=== PATIENT | female | born 1950 | race Caucasian/White ===

== ENCOUNTER 2017-02-07 09:02 | Outpatient (CLI) | payer MEDICARE ==
[2015-06-18 07:18] VITALS: BMI 39.5
[~2017-02-07 09:02] MED LIST: ASPIRIN EC81 MG PO; LEXAPRO20 MG PO; LISINOPRIL-HCTZ1 T13 PO; SYNTHROID150 MCG PO
== END 2017-02-07 11:20 ==
LOC: D.MAMMO 09:02
DX: Z85.3 Personal history of malignant neoplasm of breast (principal)

== ENCOUNTER → 2018-02-12 23:58 | Outpatient (CLI) | payer MEDICARE ==
[2015-06-18 07:18] VITALS: BMI 39.5
[~2018-02-12 23:58] MED LIST changes: +CYCLOBENZAPRINE10 MG PO; +HYDROCODONE-APA1 TAB PO; +PERCOCET 10/3251 TA1 PO; +PHENERGAN25 M1 PO
== END | disposition home or self-care (01) ==
LOC: D.MAMMO 13:30
DX: Z12.31 Encounter for screening mammogram for malignant neoplasm of breast (principal)

== ENCOUNTER 2018-03-15 05:40 | Day surgery (SDC) | payer MEDICARE ==
[2018-03-13 11:12] LABS: BASOPHILS 0.6 % (0-2); EOSINOPHILS 0.6 % (0-7); HEMATOCRIT 44.2 % (36.0-48.0); HEMOGLOBIN 14.6 g/dL (12-16); IMMATURE GRANULOCYTES 0.2 % (0-5); LYMPHOCYTES 31.3 % (15-50); MEAN PLATELET VOLUME 9.7 fL (7.4-10.4); MONOCYTES 8.1 % (2-11); NEUTROPHILS 59.2 % (40-80); PLATELET COUNT 206 10x3/uL (130-400); RBC 4.42 10x6/uL (4.00-5.40); RDW 13.3 % (11.5-14.5); WBC 5.2 10x3/uL (4.8-10.8)
[2018-03-13 11:21] LABS: APTT 31.5 SECONDS (22.8-39.4); INR 0.96 (0.85-1.17); PROTIME 12.3 SECONDS (11.6-15.0)
[2018-03-13 11:25] LABS: ANION GAP 10.6 mmol/L (8-16); CALCIUM 9.4 mg/dL (8.5-10.1); CARBON DIOXIDE 27.9 mmol/L (21.0-32.0); CREATININE - SERUM 0.9 mg/dL (0.6-1.3); POTASSIUM - SERUM 4.5 mmol/L (3.5-5.1)
[~2018-03-15] VITALS: Ht 170.2 cm; Wt 104.5 kg
--- NOTE | ~2018-03-15 | OP ---
PATIENT NAME: LAZARA GARCIA MEDICAL RECORD: [id number] :54 LOCATION:[facility] ADMISSION DATE: SURGEON: CHANDAN RODRIGUEZ MD DATE OF OPERATION: 03/15/2018 PREOPERATIVE DIAGNOSES: 1. Ventral incisional hernia. 2. Sick sinus syndrome. 3. Hypertension. 4. Gastroesophageal reflux disease. 5. Lupus. 6. Hypothyroidism. 7. Fibromyalgia. POSTOPERATIVE DIAGNOSES: 1. Ventral incisional hernia. 2. Sick sinus syndrome. 3. Hypertension. 4. Gastroesophageal reflux disease. 5. Lupus. 6. Hypothyroidism. 7. Fibromyalgia. PROCEDURE: Ventral hernia repair with 15 x [address] mesh. SURGEON: Chandan Rodriguez MD REPORT OF PROCEDURE: The patient's abdomen was prepped and draped in sterile fashion. An incision was made in the lower midline overlying the palpable hernias. Electrocautery was used to dissect through the subcutaneous tissues. We eventually encountered the hernia sac and penetrated the sac entering the abdominal cavity. Once inside, we extended our incision superiorly and inferiorly. The patient had a large inferior hernia defect and another smaller defect in the midline just above this. The fascial bridge between them was released. Any suture material that was found was removed. The tissue overlying the fascia was released in all directions. We then excised the hernia sac in the midline. The patient had some adhesions present to some small bowel to the anterior abdominal wall and this was taken down using electrocautery. At this point, the abdominal wall was completely freed up. I released the muscle from the inferior aspect of the anterior rectus sheath. Care was taken to make sure there was no sign of any active bleeding. We then reapproximated the rectus muscles and peritoneum in the midline using a running 0 Vicryl. We then measured out the hernia defect and this measured 12 cm top to bottom and was about 8 cm wide. A [address] mesh was trimmed down to 15 x 10. This was placed in an underlay fashion just underneath the rectus fascia and over top of the rectus muscles. This was sutured down on all sides using multiple interrupted 0 Prolenes. The wound was then irrigated out with normal saline. The fascia was then closed in the midline with running #1 loop PDS times 2. The wound was irrigated one last time and any bleeding that was found was treated with electrocautery. The undermined tissue was reapproximated to the fascia using multiple interrupted 3-0 Vicryls. Naty's and the subcutaneous tissues were reapproximated with running 3-0 Vicryls, and the skin was closed with anu. COMPLICATIONS: None. OPERATIVE REPORT [id number] LAZARA GARCIA CONDITION: Stable. ANESTHESIA: General endotracheal. BLOOD LOSS: 30 mL. TRANSINT:[id number] Voice Confirmation ID: [id number] DOCUMENT ID: [id number] CHANDAN RODRIGUEZ MD at 1418 CC: SILVIO AMBROCIO [id number] DICTATION DATE: 03/15/18 1028 INSPECTORS AND REGULATORY OFFICERS: 03/15/18 1042 [facility] 03/16/18 [id number] [place] [address]
[~2018-03-15 05:40] MED LIST changes: -CYCLOBENZAPRINE10 MG PO; -PERCOCET 10/3251 TA1 PO; -PHENERGAN25 M1 PO
[2018-03-15 06:23] VITALS: BP 140/73; BMI 38.8
[2018-03-15 12:16] VITALS: BP 177/63
[2018-03-15 16:25] VITALS: BP 142/55
[2018-03-15 16:40] VITALS: BP 177/63; Ht 170.2 cm; Wt 104.5 kg
[2018-03-15 20:00] VITALS: BP 127/56
[2018-03-16] VITALS: BP 123/57
[2018-03-16 04:00] VITALS: BP 126/56
[2018-03-16 06:31] LABS: BASOPHILS 0.1 % (0-2); EOSINOPHILS 0.1 % (0-7); HEMATOCRIT 37.6 % (36.0-48.0); HEMOGLOBIN 11.9 g/dL (12-16); IMMATURE GRANULOCYTES 0.2 % (0-5); LYMPHOCYTES 15.3 % (15-50); MCH 32.5 pg (26.0-34.0); MCHC 31.6 g/dL (31.0-37.0); MCV 102.7 fL (80.0-100.0); MEAN PLATELET VOLUME 9.7 fL (7.4-10.4); MONOCYTES 14.2 % (2-11); NEUTROPHILS 70.1 % (40-80); PLATELET COUNT 183 10x3/uL (130-400); RBC 3.66 10x6/uL (4.00-5.40); RDW 13.7 % (11.5-14.5); WBC 9.5 10x3/uL (4.8-10.8)
[2018-03-16 06:51] LABS: CALC OSMOLALITY 280 mosm/kg (275-300); CALCIUM 8.2 mg/dL (8.5-10.1); CARBON DIOXIDE 30.9 mmol/L (21.0-32.0); CHLORIDE - SERUM 106 mmol/L (98-107); CREATININE - SERUM 0.7 mg/dL (0.6-1.3); GLUCOSE 98 mg/dL (74-106); POTASSIUM - SERUM 4.2 mmol/L (3.5-5.1); SODIUM 141 mmol/L (136-145); UREA NITROGEN 12 mg/dL (7-18); eGFR NON AFRICAN AMERICAN 89 mL/min (90-120)
[2018-03-16 08:58] VITALS: BP 128/59
[2018-03-16] MEDS ORDERED: CYCLOBENZAPRINE10 MG PO (13:15)
[2018-03-16] MEDS ORDERED: PERCOCET 10/3251 TA1 PO (13:15)
[2018-03-16] MEDS ORDERED: PHENERGAN25 M1 PO (13:16)
== END 2018-03-16 16:45 | disposition home or self-care (01) ==
LOC: D.OPS 05:40 → D.PAN 08:00 → D.OPS 08:00 → D.MS 11:47 → D.PAN 12:00 → D.OPS 03-16 16:45
PROVIDERS: Anesthesiology; Surgery
DX: K43.2 Incisional hernia without obstruction or gangrene (principal); I49.5 Sick sinus syndrome; I10 Essential (primary) hypertension; K21.9 Gastro-esophageal reflux disease without esophagitis; M32.9 Systemic lupus erythematosus, unspecified; E03.9 Hypothyroidism, unspecified; M79.7 Fibromyalgia; Z01.812 Encounter for preprocedural laboratory examination

== ENCOUNTER → 2019-08-22 08:00 | Outpatient (CLI) | payer MEDICARE, MEDICAID ==
[2018-03-15 16:40] VITALS: BMI 36.1
[~2019-08-22 08:00] MED LIST changes: +CYCLOBENZAPRINE10 MG PO; +PERCOCET 10/3251 TA1 PO; +PHENERGAN25 M1 PO
== END | disposition home or self-care (01) ==
LOC: D.MAMMO 08:00
PROVIDERS: ATTEND Nurse Practitioner Family
DX: Z12.31 Encounter for screening mammogram for malignant neoplasm of breast (principal)